=== PATIENT | male | born 1955 | race African-American/Black ===

== ENCOUNTER 2021-10-09 12:53 | Inpatient (IN) | payer MEDICARE, MEDICAID ==
[2021-10-09] MEDS ORDERED: GUAIFENESIN SF SOLN 200 MG/10 ML UDCUP PO PRN (13:40)
[2021-10-09] MEDS ORDERED: Acetaminophen 325 MG TAB PO PRN (13:40)
[2021-10-09] MEDS ORDERED: Loratadine 10 MG TAB PO PRN (13:40)
[2021-10-09] MEDS ORDERED: hydrALAZINE 20 MG/ML VIAL SLOW IVP PRN (13:40)
[2021-10-09] MEDS ORDERED: Ondansetron ODT 4 MG TAB PO PRN (13:40)
[2021-10-09] MEDS ORDERED: Artificial Tear Sol 15 ML BOT EA EYE PRN (13:40)
[2021-10-09] MEDS ORDERED: Loperamide HCl 2 MG CAP PO PRN (13:40)
[2021-10-09] MEDS ORDERED: Ondansetron PF 4 MG/2 ML Vial IVP PRN (13:40)
[2021-10-09] MEDS ORDERED: Calcium Carbonate 500 MG ChewTAB PO PRN (13:40)
[2021-10-09] MEDS ORDERED: Senokot S 8.6-50 MG TAB PO PRN (13:40)
[2021-10-09] MEDS ORDERED: Moisturizing Cream (Eucerin) 113 GM JAR TOP PRN (13:40)
[2021-10-09] MEDS ORDERED: Cepastat Lozenges 1 LOZ PO PRN (13:40)
[2021-10-09] MEDS ORDERED: HYDROcodone/Acetaminophen 5/325 mg Tablet PO PRN (13:40)
[2021-10-09] MEDS ORDERED: Guaifenesin DM 100-10/5 ML UDCUP PO PRN (13:40)
[2021-10-09] MEDS ORDERED: Azithromycin 500 MG in Sodium Chloride 0.9% 250 ML 250 ML IVPB SCH (15:00)
[2021-10-09 16:52] LABS: Bilirubin Neg (Negative); Blood, Urine 250 (Negative); Clarity Slightly Cloudy (Clear); Glucose, Urine (Dipstick) Normal (Negative); Ketone, Urine Negative (Negative); Leukocyte 500 (Negative); Nitrite Negative (Negative); Protein, Urine (Dipstick) 100 mg/dl (Neg-Trace); Specific Gravity, Urine 1.015 (1.002-1.036); Urobilinogen Normal mg/dL (Less than 2)
[2021-10-09 17:00] LABS: Bacteria/HPF Rare-Few HPF (None Seen); Squamous Epithelial 0-3 HPF (0-3); WBC/HPF 21-50 HPF (0-3)
[2021-10-09 17:13] LABS: Legionella Urinary Ag Negative (Negative)
[2021-10-09 17:14] LABS: Strep pneumo Urine Ag NEGATIVE (NEGATIVE)
[2021-10-09] MEDS ORDERED: Azithromycin 500 MG VIAL ONE (17:36)
[2021-10-09] MEDS ORDERED: cefTRIAXone\\ROCEPHIN 1 GM VIAL ONE (17:36)
[2021-10-09 17:39] LABS: Troponin I 0.034 ng/mL (< 0.028)
[2021-10-09] MEDS: cefTRIAXone\\ROCEPHIN 1 GM in Sodium Chloride 0.9% 100 ML IVPB SCH (17:39)
[2021-10-09 20:11] VITALS: BMI 19.8
[2021-10-09] MEDS: Famotidine 20 MG TAB PO SCH (20:21)
[2021-10-09] MEDS ORDERED: Zolpidem Tartrate 5 MG TAB PO PRN (21:00)
[2021-10-09 21:19] LABS: Troponin I 0.053 ng/mL (< 0.028)
[2021-10-10 04:35] LABS: #Monocytes 0.4 10x3/uL (0.0-1.1); #Neutrophils 7.7 10x3/uL (1.5-8.4); %Basophils 0.3 % (0.0-2.0); %Lymphocytes 23.3 % (18.0-47.0); %Monocytes 3.9 % (0.0-10.0); %Neutrophils 72.1 % (40.0-75.0); Hemoglobin 9.7 g/dL (13.5-17.5); Mean Corpuscular HGB CONC 32.3 g/dL (32.0-36.0); Mean Corpuscular Hemoglobin 22.8 pg (27.0-33.0); Mean Corpuscular Volume 70.6 fl (81.2-95.1); Mean Platelet Volume 11.7 fl (7.4-10.4); Platelet Count 333 10x3/uL (150-450); RBC Distribution Width 17.6 % (11.5-14.5); Red Blood Cell (RBC) Count 4.25 10x6/uL (4.32-5.72); White Blood Cell (WBC) Count 10.7 10x3/uL (3.5-10.5)
[2021-10-10 05:06] LABS: ALT (SGPT) 21 U/L (8-55); AST (SGOT) 25 U/L (5-34); Albumin 3.3 g/dL (3.4-4.8); Alkaline Phosphatase 69 U/L (40-110); Anion Gap 18 mmol/L (10-20); BUN (Urea Nitrogen) 20 mg/dL (8.4-25.7); Bilirubin, Total 0.5 mg/dL (0.2-1.2); Calc. Creatinine Clearance 55 mL/min (70-130); Calcium 8.6 mg/dL (7.8-10.44); Carbon Dioxide 20 mmol/L (23-31); Chloride 111 mmol/L (98-107); Globulin 3.9 g/dL (2.4-3.5); Glucose 120 mg/dL (80-115); Protein, Total 7.2 g/dL (5.8-8.1); Sodium 145 mmol/L (136-145)
[2021-10-10 05:06] LABS: Lactic Acid 2.2 mmol/L (0.5-2.2)
[2021-10-10] MEDS: Famotidine 20 MG TAB PO SCH ×2 (10:28→21:35)
[2021-10-10] MEDS: Multivitamin W/ Minerals 1 TAB PO SCH (10:28)
[2021-10-10] MEDS: Furosemide 40 MG/4 ML VIAL SLOW IVP SCH (10:29)
[2021-10-10] MEDS: Azithromycin 500 MG in Sodium Chloride 0.9% 250 ML 250 ML IVPB SCH (10:29)
[2021-10-10] MEDS: Enoxaparin Sodium 40 MG/0.4 ML SYRINGE SC SCH (10:29)
[2021-10-10] MEDS ORDERED: Carvedilol 6.25 MG TAB PO SCH (11:00)
[2021-10-10] MEDS: cefTRIAXone\\ROCEPHIN 1 GM in Sodium Chloride 0.9% 100 ML IVPB SCH (17:20)
[2021-10-10] MEDS: Carvedilol 6.25 MG TAB PO SCH (17:20)
[2021-10-11] MEDS: Carvedilol 6.25 MG TAB PO SCH (08:54)
[2021-10-11] MEDS: Famotidine 20 MG TAB PO SCH ×2 (08:55→21:23)
[2021-10-11] MEDS: Furosemide 40 MG/4 ML VIAL SLOW IVP SCH (08:55)
[2021-10-11] MEDS: Spironolactone 25 MG TAB PO SCH (08:55)
[2021-10-11] MEDS: Enoxaparin Sodium 40 MG/0.4 ML SYRINGE SC SCH (08:55)
[2021-10-11] MEDS: Multivitamin W/ Minerals 1 TAB PO SCH (08:55)
[2021-10-11] MEDS: Lisinopril 5 MG TAB PO SCH (08:55)
[2021-10-11] MEDS: Azithromycin 500 MG in Sodium Chloride 0.9% 250 ML 250 ML IVPB SCH (11:29)
[2021-10-11] MEDS: cefTRIAXone\\ROCEPHIN 1 GM in Sodium Chloride 0.9% 100 ML IVPB SCH (15:10)
[2021-10-11] MEDS: Carvedilol 12.5 MG TAB PO SCH (17:16)
[2021-10-12 04:45] LABS: Hemoglobin 9.3 g/dL (13.5-17.5); MDiff Complete? YES; Manual Diff?? YES; Mean Corpuscular HGB CONC 32.9 g/dL (32.0-36.0); Mean Corpuscular Hemoglobin 23.1 pg (27.0-33.0); Mean Corpuscular Volume 70.2 fl (81.2-95.1); Mean Platelet Volume 10.8 fl (7.4-10.4); Platelet Count 289 10x3/uL (150-450); RBC Distribution Width 17.9 % (11.5-14.5); Red Blood Cell (RBC) Count 4.03 10x6/uL (4.32-5.72); White Blood Cell (WBC) Count 8.4 10x3/uL (3.5-10.5)
[2021-10-12 05:01] LABS: Anion Gap 15 mmol/L (10-20); BUN (Urea Nitrogen) 24 mg/dL (8.4-25.7); Calc. Creatinine Clearance 61 mL/min (70-130); Calcium 8.3 mg/dL (7.8-10.44); Carbon Dioxide 23 mmol/L (23-31); Chloride 108 mmol/L (98-107); Glucose 97 mg/dL (80-115); Magnesium 1.8 mg/dL (1.6-2.6); Phosphorus 3.3 mg/dL (2.3-4.7); Potassium 3.5 mmol/L (3.5-5.1); Sodium 142 mmol/L (136-145)
[2021-10-12 05:06] LABS: Eosinophils 3 % (0-10); Lymphocytes 41 % (21-51); Monocytes 5 % (0-10); Neutrophil 51 % (42-75)
[2021-10-12 05:07] LABS: Platelet Morphology Comment Appears Adequate
[2021-10-12 05:09] LABS: Anisocytosis SLIGHT = 6-15 cells (100X) (0-5/hpf); Hypochromia SLIGHT = 6-15 cells (100X) (0-5/hpf); Macrocytosis SLIGHT = 6-15 cells (100X) (0-5/hpf); Microcytosis SLIGHT = 6-15 cells (100X) (0-5/hpf); Polychromasia SLIGHT = 2-3 cells (100X) (0-2/hpf); Schistocytes SLIGHT = 2-5 cells (100X) (0-1/hpf); Target Cells SLIGHT = 2-5 cells (100X) (0-1/hpf)
[2021-10-12] MEDS: Spironolactone 25 MG TAB PO SCH (08:21)
[2021-10-12] MEDS: Enoxaparin Sodium 40 MG/0.4 ML SYRINGE SC SCH (08:21)
[2021-10-12] MEDS: Lisinopril 5 MG TAB PO SCH (08:21)
[2021-10-12] MEDS: Furosemide 40 MG/4 ML VIAL SLOW IVP SCH (08:22)
[2021-10-12] MEDS: Famotidine 20 MG TAB PO SCH ×2 (08:22→20:30)
[2021-10-12] MEDS: Carvedilol 12.5 MG TAB PO SCH ×2 (08:22→17:31)
[2021-10-12] MEDS: Multivitamin W/ Minerals 1 TAB PO SCH (08:22)
[2021-10-12] MEDS ORDERED: Magnesium Oxide 400 MG TAB PO SCH (10:30)
[2021-10-12] MEDS ORDERED: Potassium Chloride 20 MEQ TAB PO SCH (10:30)
[2021-10-12] MEDS ORDERED: cefTRIAXone\\ROCEPHIN 1 GM VIAL ONE (11:34)
[2021-10-12] MEDS: Azithromycin 500 MG in Sodium Chloride 0.9% 250 ML 250 ML IVPB SCH (11:42)
[2021-10-12] MEDS: cefTRIAXone\\ROCEPHIN 1 GM in Sodium Chloride 0.9% 100 ML IVPB SCH (15:20)
[2021-10-12] MEDS ORDERED: Iopamidol 300 61% 100 ML VIAL FS ONE (15:32)
[2021-10-13] MEDS: Spironolactone 25 MG TAB PO SCH (08:32)
[2021-10-13] MEDS: Lisinopril 5 MG TAB PO SCH (08:32)
[2021-10-13] MEDS: Carvedilol 12.5 MG TAB PO SCH (08:32)
[2021-10-13] MEDS: Multivitamin W/ Minerals 1 TAB PO SCH (08:32)
[2021-10-13] MEDS: Enoxaparin Sodium 40 MG/0.4 ML SYRINGE SC SCH (08:32)
[2021-10-13] MEDS: Furosemide 40 MG/4 ML VIAL SLOW IVP SCH (08:33)
[2021-10-13] MEDS: Famotidine 20 MG TAB PO SCH (08:33)
[2021-10-13] MEDS ORDERED: Magnesium Oxide 400 MG TAB PO SCH (09:00)
[2021-10-13] MEDS ORDERED: Lisinopril 2.5 MG TAB PO SCH (09:00)
[2021-10-13] MEDS: Azithromycin 500 MG in Sodium Chloride 0.9% 250 ML 250 ML IVPB SCH (11:45)
[2021-10-13 16:13] VITALS: BP 92/59; TEMP 98.9
[2021-10-13] MEDS ORDERED: Carvedilol 6.25 MG TAB PO SCH (17:00)
[2021-10-14] MEDS ORDERED: Furosemide 40 MG TAB PO SCH (07:30)
== END 2021-10-13 17:09 | disposition home or self-care (01) | DRG 280 ==
LOC: CSHTELE 12:53 → OBSVTOIN 13:40
PROVIDERS: ADMIT Internal Medicine; ATTEND Internal Medicine
DX: I50.21 Acute systolic (congestive) heart failure (principal); J18.9 Pneumonia, unspecified organism; I21.A1 Myocardial infarction type 2; J96.01 Acute respiratory failure with hypoxia; A19.9 Miliary tuberculosis, unspecified; E87.2 Acidosis; N39.0 Urinary tract infection, site not specified; D84.9 Immunodeficiency, unspecified; Z68.1 Body mass index [BMI] 19.9 or less, adult; I42.8 Other cardiomyopathies; D63.8 Anemia in other chronic diseases classified elsewhere; F10.11 Alcohol abuse, in remission; F12.90 Cannabis use, unspecified, uncomplicated; N28.89 Other specified disorders of kidney and ureter; F10.10 Alcohol abuse, uncomplicated; F19.10 Other psychoactive substance abuse, uncomplicated; R63.4 Abnormal weight loss; F17.210 Nicotine dependence, cigarettes, uncomplicated; N28.9 Disorder of kidney and ureter, unspecified; Z60.2 Problems related to living alone; Z87.442 Personal history of urinary calculi
CPT/HCPCS: 36415; 74160; 74176; 80048; 80053; 83605; 83735; 84100; 84443; 85025; 87385; 87449; 87899; 93306; 94760; J0456; J0696; J1650; J1940; J3490; J7050; Q9967